=== PATIENT | female | born 1980 | race Caucasian/White ===

== ENCOUNTER 2017-06-13 13:25 | Outpatient (CLI) | payer OTHER ==
--- NOTE | 2017-06-13 19:34 | XRAY Report ---
THREE-VIEW LUMBAR SPINE: 06/13/2017 CLINICAL INDICATION: Pain, decreased range of motion. FINDINGS: AP, lateral, coned-down views of the lumbar spine demonstrate six non-rib bearing lumbar v ertebral bodies. There is no evidence of acute fracture or subluxation. The disk spaces are preserv ed. IMPRESSION: NO EVIDENCE OF FRACTURE. JOB #: [id number] EXT JOB #:[id number]
== END 2017-06-13 13:26 | disposition home or self-care (01) ==
LOC: DI.S 13:25
PROVIDERS: ATTEND Physician Assistant
DX: M54.5 Low back pain (principal)
CPT/HCPCS: 72100

== ENCOUNTER 2020-01-19 14:36 | Outpatient (CLI) | payer BC ==
--- NOTE | 2020-01-20 09:43 | XRAY Report ---
Reason: LOW BACK PAIN, THORACIC SPINE PAIN Procedure Date: 01/19/2020 Accession Number: [id number] / [id number] Procedure: XRS - Thoracic Spine 2 View CPT Code: Final Report FULL RESULT: EXAM: THORACIC SPINE RADIOGRAPHY EXAM DATE: 01/19/2020 03:08 PM. CLINICAL HISTORY: Low back pain, thoracic spine pain. COMPARISON: None. TECHNIQUE: 3 views. FINDINGS: AP, lateral and swimmer's views are submitted. Normal alignment. No acute fracture or focal bone destruction. No significant intervertebral disk space narrowing. There is minimal chronic mid to lower thoracic vertebral body endplate irregularity that is likely related to mild chronic degenerative change. Otherwise radiographically unremarkable findings. Physiologic alignment at the cervicothoracic junction. Grossly clear lungs and unremarkable cardiomediastinal silhouette as far as visualized. IMPRESSION: No acute abnormality. Normal alignment. Minimal chronic appearing mid and lower thoracic degenerative endplate irregularities may be present. RADIA
--- NOTE | 2020-01-20 09:59 | XRAY Report ---
Reason: BACK PAIN, THORACIC SPINE PAIN Procedure Date: 01/19/2020 Accession Number: [id number] / [id number] Procedure: XRS - Lumbar Spine 2 View CPT Code: Final Report FULL RESULT: EXAM: LUMBOSACRAL SPINE RADIOGRAPHY EXAM DATE: 01/19/2020 03:08 PM. CLINICAL HISTORY: Chronic low back pain. COMPARISONS: LUMBAR SPINE 2 VIEW 06/13/2017 1:37 PM. TECHNIQUE: 3 views. FINDINGS: Alignment: Straightening of the normal lumbar lordosis. No vertebral body subluxation. No scoliosis. Bones: Five [id number] lumbar vertebral bodies are present. No fractures or bone lesions. Normal bone mineralization. Pedicles are intact. No congenital vertebral anomaly. Disks: Mild degenerative disk disease at L2-L3 with anterior marginal osteophytes. No significant disk space narrowing at L2-L3 or in the remainder of the lumbar spine. Facets: No degenerative changes. Sacroiliac Joints: Unremarkable. Soft Tissues: Normal. The visualized bowel gas pattern is normal. IMPRESSION: 1. Mild degenerative disk disease at L2-L3. 2. Straightening of the normal lumbar lordosis. 3. The remainder of the lumbosacral spine radiography is unremarkable. RADIA
== END 2020-01-19 14:37 | disposition home or self-care (01) ==
LOC: DI.S 14:36
PROVIDERS: ATTEND Physician Assistant
DX: M51.36 Other intervertebral disc degeneration, lumbar region (principal)
CPT/HCPCS: 72070; 72100

== ENCOUNTER 2021-04-25 08:00 | Outpatient (CLI) | payer BC ==
--- NOTE | 2021-04-25 11:27 | XRAY Report ---
PROCEDURE: Knee 3 View RT INDICATIONS: SPRAIN OF RIGHT KNEE TECHNIQUE: 3 views of the right knee(s) were acquired. COMPARISON: None. FINDINGS: No acute fracture identified. There is moderate joint effusion. Joint spaces grossly preserved. Mild spurring. IMPRESSION: Joint effusion. If the patient's pain or other symptoms persist, consider further evalua tion with MRI. Reviewed by: Jose Daniel Arboleda MD on 04/25/2021 11:26 AM PDT Approved by: Jose Daniel Arboleda MD on 04/25/2021 11:26 AM PDT Station ID: [id number]
== END 2021-04-25 23:59 | disposition home or self-care (01) ==
LOC: DI.S 08:00
PROVIDERS: ATTEND Emergency Medicine
DX: S83.411A Sprain of medial collateral ligament of right knee, initial encounter (principal)